=== PATIENT | male | born 1950 | race Caucasian/White ===

== ENCOUNTER 2019-03-28 09:06 | Emergency (ER) | payer MEDICARE, OTHER ==
[2019-03-28] MEDS: PHENAZOPYRIDINE 100 MG TAB PO (10:19)
[2019-03-28] MEDS: CEFTRIAXONE 1 GM INJ IM (10:20)
[2019-03-28] MEDS: LIDOCAINE 1% (MDV) 20 ML INJ SC (10:20)
[2019-03-28] MEDS: KETOROLAC 15 MG INJ IM (10:35)
[2019-03-28 11:01] LABS: ADD UMIC YES; UR ASCORBIC ACID NEGATIVE (NEGATIVE); UR BILIRUBIN (Dip) NEGATIVE (NEGATIVE); UR BLOOD (Dip) 3+ mg/dL (NEGATIVE); UR CLARITY CLOUDY (CLEAR); UR COLOR AMBER (YELLOW); UR GLUCOSE (Dip) NEGATIVE (NEGATIVE); UR KETONES (Dip) NEGATIVE (NEGATIVE); UR LEUKOCYTE ESTERASE (Dip) 3+ Leu/ul (NEGATIVE); UR MUCUS FEW /HPF (NONE SEEN); UR NITRITE (Dip) POSITIVE (NEGATIVE); UR RBC 36 /HPF (0-5); UR SPECIFIC GRAVITY (Dip) 1.021 (1.003-1.030); UR TOTAL PROTEIN (Dip) 1+ mg/dl (NEGATIVE); UR UROBILINOGEN (Dip) NEGATIVE (NEGATIVE); UR WBC > 182 /HPF (0-5)
== END 2019-03-28 11:15 | disposition home or self-care (01) ==
LOC: FTE 11:15
DX: T83.511A Infection and inflammatory reaction due to indwelling urethral catheter, initial encounter (principal); N39.0 Urinary tract infection, site not specified; Y73.2 Prosthetic and other implants, materials and accessory gastroenterology and urology devices associated with adverse incidents; Z85.46 Personal history of malignant neoplasm of prostate
CPT/HCPCS: 81001; 87086; 96372; 99284-25